=== PATIENT | female | born 1980 | race Caucasian/White ===

== ENCOUNTER 2019-03-01 07:06 | Day surgery (SDC) | payer OTHER ==
[2019-02-21 15:51] LABS: BASOPHILS % (AUTO) 0.6 % (0-1); EOSINOPHILS # (AUTO) 0.1 X10'3 (0-0.9); EOSINOPHILS % (AUTO) 0.7 % (0-6); LYMPHOCYTES % (AUTO) 12.8 % (21-51); MEAN CORPUSCULAR HEMOGLOBIN 29.3 PG (27.0-31.0); MEAN CORPUSCULAR HGB CONC 33.1 g/dL (33.0-36.5); MEAN CORPUSCULAR VOLUME 88.4 FL (78-98); MEAN PLATELET VOLUME 7.7 FL (7.4-10.4); MONOCYTES # (AUTO) 0.5 X10'3 (0-0.9); MONOCYTES % (AUTO) 6.5 % (2-12); NEUTROPHILS # (AUTO) 6.5 X10'3 (1.8-7.7); NEUTROPHILS % (AUTO) 79.4 % (42-75); PRE OP HEMATOCRIT 39.5 % (35.0-45.0); PRE OP HEMOGLOBIN 13.1 g/dL (12.0-16.0); PRE OP PLATELET COUNT 301 X10'3 (140-440); RED BLOOD COUNT 4.46 X10'6 (4.20-5.60); RED CELL DISTRIBUTION WIDTH 14.1 % (11.5-14.5)
[2019-02-21 16:02] LABS: ALBUMIN 3.5 G/DL (3.4-5.0); ALBUMIN/GLOBULIN RATIO 0.9 (1.1-1.5); ALKALINE PHOSPHATASE 63 IU/L (46-116); BLOOD UREA NITROGEN 13 MG/DL (7-18); BUN/CREATININE RATIO 14.9 (6.6-38.0); CALCIUM 9.2 MG/DL (8.5-10.1); CHLORIDE 107 MMOL/L (99-107); CREATININE 0.87 MG/DL (0.40-0.90); PRE OP ALT 23 U/L (30-65); PRE OP ANION GAP 2 (8-16); PRE OP AST 15 U/L (10-37); PRE OP BILIRUB, TOTAL 0.4 MG/DL (0.0-1.0); PRE OP GLUCOSE 101 MG/DL (70-104); PRE OP POTASSIUM 4.2 MMOL/L (3.4-5.1); PRE OP SODIUM 139 MMOL/L (135-145); TOTAL PROTEIN 7.5 G/DL (6.4-8.2); eGFR 72 ML/MIN
[~2019-03-01] VITALS: Ht 162.6 cm; Wt 132.2 kg
[2019-03-01] VITALS (11 sets, daily range): BP systolic 123–149; BP diastolic 62–72
[~2019-03-01 07:06] MED LIST: NO HOME MEDS
[2019-03-01] MEDS ORDERED: BUPIVAcaine/PF 2.5 mg/ml (0.25%) 30ml vial ONE (09:50)
[2019-03-01] MEDS ORDERED: aprepitant 40mg capsule PO ONE (10:32)
[2019-03-01] MEDS ORDERED: cloNIDine hcl/PF 100mcg/ml inj ONE (10:35)
[2019-03-01] MEDS ORDERED: sevoflurane 250ml liquid IH ONE (11:00)
[2019-03-01] MEDS ORDERED: MIDAZolam 5mg/5ml vial ONE (11:00)
[2019-03-01] MEDS ORDERED: LIDOcaine 1%/PF 5ML 10 MG/ML VIAL ONE (11:00)
[2019-03-01] MEDS ORDERED: fentaNYL /PF 50mcg/ml 5ml ampule ONE (11:03)
[2019-03-01] MEDS ORDERED: ROPIVAcaine 0.5% (5mg/ml) 30ml vial ONE (11:09)
[2019-03-01] MEDS ORDERED: dexamethasone sod phosphate 4mg/ml inj. ONE (11:25)
[2019-03-01] MEDS ORDERED: propofol inj 20 ML IV ONE (11:25)
[2019-03-01] MEDS ORDERED: ondansetron/PF 4mg/2ml inj ONE (11:27)
[2019-03-01] MEDS ORDERED: ringers solution, lacted 1,000 ML IV SCH ×2 (11:40→13:30)
[2019-03-01] MEDS ORDERED: morphine 4 MG/ML inj SYRINge IV PRN ×2 (11:40)
[2019-03-01] MEDS ORDERED: meperidine/PF 25mg/ml syringe IV PRN ×3 (11:40)
[2019-03-01] MEDS ORDERED: ondansetron/PF 4mg/2ml inj IV PRN (11:40)
[2019-03-01] MEDS ORDERED: proCHLORperazine 10 MG/2 ml inj IV PRN (11:40)
[2019-03-01] MEDS ORDERED: ketorolac trometh. 30mg/ml inj. ONE (13:20)
[2019-03-01] MEDS ORDERED: CEFAZOLIN IV ONE (13:30)
[2019-03-01] MEDS ORDERED: famotidine 20mg tablet PO ONE (13:30)
[2019-03-01] MEDS ORDERED: scopolamine 1.5mg patch.TD72 TD ONE (13:30)
[2019-03-01] MEDS ORDERED: ceFAZolin inj. 3,000 MG in dextrose 5%-water 100 ML IV ONE (13:30)
[2019-03-01] MEDS ORDERED: WATER IV ONE (13:30)
[2019-03-01] MEDS ORDERED: vancomycin inj 1,500 MG in normal saline 300ml IV soln IV ONE (13:30)
[2019-03-01] MEDS ORDERED: DEXTROSE 5% IV ONE (13:30)
[2019-03-01] MEDS ORDERED: ceFAZolin inj. 3,000 MG in normal saline 100ml IV soln 100 ML IV ONE (13:30)
--- NOTE | 2019-03-01 13:40 | NUR ---
Received from OR via BED , accompanied by Anesthesiologist DR FOSTER and report given by Anesthesiolgist. PATIENT WAKING UP, DENIES PAIN, V/S WNL, NEUROVASCULAR CHECKS INTACT, 20G PIV RUE , DRESSING TO RIGHT KNEE CDI W/ COLD POWDER PACK AND BRACE W/ SCD ON.
[2019-03-01] MEDS ORDERED: HYDROcodone/acetaminophen 10/325mg tab PO ONE (14:15)
--- NOTE | 2019-03-01 15:10 | NUR ---
PATIENT A&OX4, DENIES PAIN, V/S WNL, NEUROVASCULAR CHECKS INTACT, 20G PIV D/C WITH NO COMPLICATIONS OBSERVED , DRESSING TO RIGHT KNEE CDI W/ COLD POWDER PACK AND BRACE LOCKED IN EXTENTION , SCD OFF. I HAVE REVIEWED D/C INSTRUCTIONS WITH PATIENT AND FAMILY AND THEY HAVE VERBALIZED UNDERSTANDING. PATIENT D/C HOME WITH ALL BELONGINGS AND FAMILY GAVE TRANSPORT HOME.
== END 2019-03-01 15:10 | disposition home or self-care (01) ==
LOC: PAS 07:06
PROVIDERS: ATTEND Orthopaedic Surgery
DX: S83.511A Sprain of anterior cruciate ligament of right knee, initial encounter (principal); S83.281A Other tear of lateral meniscus, current injury, right knee, initial encounter; S83.241A Other tear of medial meniscus, current injury, right knee, initial encounter; M17.11 Unilateral primary osteoarthritis, right knee; M22.8X1 Other disorders of patella, right knee; I10 Essential (primary) hypertension; M22.41 Chondromalacia patellae, right knee; G89.18 Other acute postprocedural pain; K21.9 Gastro-esophageal reflux disease without esophagitis; X58.XXXA Exposure to other specified factors, initial encounter; Y93.89 Activity, other specified; Y92.89 Other specified places as the place of occurrence of the external cause; Y99.8 Other external cause status; Z79.899 Other long term (current) drug therapy; E66.01 Morbid (severe) obesity due to excess calories; Z68.43 Body mass index [BMI] 50.0-59.9, adult; Z98.890 Other specified postprocedural states
CPT/HCPCS: 29873; 29879; 29880; 29888; 36415; 64447; 73560; 76942; 80053; 82948; 85025; 93005; C1713; C1776; J0690; J0735; J1100; J1885; J2175; J2250; J2405; J2704; J3010; J3370; J3490; J7060; J8501; L1832; A4618; A6250; A6449; A7000; J2795; J7120